=== PATIENT | female | born 1990 | race Caucasian/White ===

== ENCOUNTER 2016-06-30 19:48 | Emergency (ER) | payer OTHER ==
[2016-06-30 20:03] VITALS: BP 125/66; PULSE 71; RESP 20; TEMP 97.8
--- NOTE | 2016-06-30 20:04 | ED ---
URI HPI - General Stated Complaint: congestion Time Seen by Provider: 06/30/16 19:58 Source: patient, RN notes reviewed Mode of arrival: ambulatory Limitations: no limitations - History of Present Illness Initial Comments: 25-year-old female presents emergency Department chief complaint cold-like symptoms last 4 days. Patient states that she's been taking Sudafed, over-the- counter pain relievers no relief. She states she has sinus pressure, runny nose cough. She states that her mother is concerned that she has multiple contacts that have been diagnosed with pneumonia. Patient had no known fever. She states she has felt hot and cold though she did not take her temperature. Patient denies any relief with qrth-[id number]-[id number] medications. Denies ear pain or shortness throat. Denies any nausea vomiting diarrhea constipation. Denies any chance . - Related Data Home Medications Medication Instructions Recorded Confirmed Etonogestrel/Ethinyl Estradiol 1 ring VAGINAL Q28D 03/05/16 06/30/16 [Nuvaring Vaginal Ring] Previous Rx's Medication Instructions Recorded Amoxicillin/Potassium Clav 1 tab PO Q12HR #20 tab 06/30/16 [Augmentin 875-125 Tablet] Allergies Allergy/AdvReac Type Severity Reaction Status Date / Time No Known Allergies Allergy Verified 03/05/16 17:12 Review of Systems ROS Statement: Those systems with pertinent positive or pertinent negative responses have been documented in the HPI. ROS Other: All systems not noted in ROS Statement are negative. Past Medical History Past Medical History: No Reported History Additional Past Medical History / Comment(s): miscarriage History of Any Multi-Drug Resistant Organisms: None Reported Additional Past Surgical History / Comment(s): d and c Past Psychological History: No Psychological Hx Reported Smoking Status: Current every day smoker Past Alcohol Use History: Occasional Past Drug Use History: None Reported General Exam General appearance: alert, in no apparent distress Head exam: Present: atraumatic, normocephalic, normal inspection Eye exam: Present: normal appearance, PERRL, EOMI. Absent: scleral icterus, conjunctival injection, periorbital swelling ENT exam: Present: normal exam, normal oropharynx, mucous membranes moist, TM's normal bilaterally, normal external ear exam Neck exam: Present: normal inspection, full ROM. Absent: tenderness, meningismus, lymphadenopathy Respiratory exam: Present: normal lung sounds bilaterally. Absent: respiratory distress, wheezes, rales, rhonchi, stridor Cardiovascular Exam: Present: regular rate, normal rhythm, normal heart sounds. Absent: systolic murmur, diastolic murmur, rubs, gallop, clicks Skin exam: Present: warm, dry, intact, normal color. Absent: rash Course Vital Signs 06/30/16 20:01 Temperature 97.8 F Pulse Rate 71 Respiratory 20 Rate Blood Pressure 125/66 O2 Sat by Pulse 98 Oximetry Disposition Clinical Impression: Sinusitis Disposition: HOME SELF-CARE Condition: Stable Instructions: Sinusitis (ED) Additional Instructions: Please return to the Emergency Department if symptoms worsen or any other concerns. Prescriptions: Amoxicillin/Potassium Clav [Augmentin 875-125 Tablet] 1 tab PO Q12HR #20 tab Time of Disposition: 20:14
--- NOTE | 2016-06-30 20:19 | XR ---
EXAMINATION TYPE: XR chest 2V DATE OF EXAM: 06/30/2016 8:06 PM COMPARISON: NONE HISTORY: Cough and congestion TECHNIQUE: Frontal and lateral views of the chest are obtained. FINDINGS: Heart and mediastinum are normal. Lungs are clear. Diaphragm is normal. Bony thorax and so ft tissues appear normal. IMPRESSION: Normal chest
== END 2016-06-30 20:20 | disposition home or self-care (01) ==
LOC: EC 19:48
DX: J32.9 Chronic sinusitis, unspecified (principal); F17.200 Nicotine dependence, unspecified, uncomplicated; Z79.3 Long term (current) use of hormonal contraceptives
CPT/HCPCS: 71020; 99283

== ENCOUNTER 2018-10-09 12:49 | Emergency (ER) | payer OTHER ==
[2018-10-09 13:25] VITALS: RESP 18
[2018-10-09] MEDS ORDERED: SODIUM CHLORIDE 0.9% 1,000 ML IV STA (14:20)
--- NOTE | 2018-10-09 14:23 | ED ---
Abdominal Pain HPI - General Chief Complaint: Abdominal Pain Stated Complaint: Abd.pain Time Seen by Provider: 10/09/18 13:59 Source: patient Mode of arrival: ambulatory Limitations: no limitations - History of Present Illness Initial Comments: 27-year-old female patient presents to the emergency department today for evaluation of right lower quadrant abdominal pain. Patient states she's had this pain since Friday. She describes as a sharp pain that has been constant since its onset. She denies any nausea, vomiting, constipation, or diarrhea. Denies any fevers or chills with this. She denies any hematuria, dysuria, urinary frequency, urinary urgency. Patient states that she did have routine labs drawn on Friday did provide a urine sample, review the results and everything was normal. She states is her only surgical history includes a D&C for miscarriage. She denies any current chance of . Denies any abnormal vaginal bleeding or discharge. Patient denies any recent rash, shortness breath, chest pain, back pain, numbness, tingling, dizziness, weakness, headache, visual changes, or any other complaints. - Related Data Home Medications Medication Instructions Recorded Confirmed Etonogestrel/Ethinyl Estradiol 1 ring VAGINAL Q28D 03/05/16 10/09/18 [Nuvaring Vaginal Ring] DULoxetine HCL [Cymbalta] 30 mg PO DAILY 04/23/17 10/09/18 Allergies Allergy/AdvReac Type Severity Reaction Status Date / Time No Known Allergies Allergy Verified 10/09/18 13:57 Review of Systems ROS Statement: Those systems with pertinent positive or pertinent negative responses have been documented in the HPI. ROS Other: All systems not noted in ROS Statement are negative. Past Medical History Past Medical History: No Reported History Additional Past Medical History / Comment(s): miscarriage History of Any Multi-Drug Resistant Organisms: None Reported Additional Past Surgical History / Comment(s): d and c Past Psychological History: No Psychological Hx Reported Smoking Status: Current every day smoker Past Alcohol Use History: Occasional Past Drug Use History: None Reported General Exam Limitations: no limitations General appearance: alert, in no apparent distress, other (Physical well- developed, well-nourished adult female patient in no acute distress. Vital signs upon presentation are temperature 98.6F, pulse 68, respirations 18, blood pressure 111/75, pulse ox 99% on room air.) Eye exam: Present: normal appearance, PERRL, EOMI. Absent: scleral icterus, conjunctival injection, periorbital swelling ENT exam: Present: normal exam, normal oropharynx, mucous membranes moist Respiratory exam: Present: normal lung sounds bilaterally. Absent: respiratory distress, wheezes, rales, rhonchi, stridor Cardiovascular Exam: Present: regular rate, normal rhythm, normal heart sounds. Absent: systolic murmur, diastolic murmur, rubs, gallop, clicks GI/Abdominal exam: Present: soft, tenderness (Right upper quadrant tenderness), normal bowel sounds. Absent: distended, guarding, rebound, rigid Neurological exam: Present: alert, oriented X3, CN II-XII intact Psychiatric exam: Present: normal affect, normal mood Skin exam: Present: warm, dry, intact, normal color. Absent: rash Course Vital Signs 10/09/18 10/09/18 13:21 15:53 Temperature 98.6 F 98.9 F Pulse Rate 68 70 Respiratory 18 18 Rate Blood Pressure 111/75 122/84 O2 Sat by Pulse 99 98 Oximetry Medical Decision Making - Medical Decision Making 27-year-old female patient presents to the emergency department today for evalu ation of right-sided abdominal pain. Physical examination did reveal right upper quadrant abdominal tenderness. Labs reviewed and are unremarkable. White blood cell count normal, liver enzymes normal. Urinalysis showed no evidence for infection. KUB x-ray was obtained and showed overall nonobstructive bowel gas pattern. Patient does not to some constipation. Patient had no tenderness over the right lower quadrant or McBurney's point. Patient denies vaginal bleeding or discharge. Did discuss findings and results with the patient. We did discuss possibility of constipation as a cause for her symptoms, she'll be given magnesium citrate. She is instructed to monitor for worsening symptoms including worsening pain and fever development. She is instructed to follow-up with her primary care physician for recheck in 1-2 days. Return parameters discussed in detail. She verbalizes understanding and agrees this plan. - Lab Data Result diagrams: 10/09/18 14:42 10/09/18 14:42 Lab Results 10/09/18 10/09/18 10/09/18 Range/Units 14:42 14:42 14:42 WBC 3.7 L (3.8-10.6) k/uL RBC 4.69 (3.80-5.40) m/uL Hgb 14.3 (11.4-16.0) gm/dL Hct 42.8 (34.0-46.0) % MCV 91.4 (80.0-100.0) fL MCH 30.5 (25.0-35.0) pg MCHC 33.4 (31.0-37.0) g/dL RDW 12.8 (11.5-15.5) % Plt Count 154 (150-450) k/uL Neutrophils % 37 % Lymphocytes % 51 % Monocytes % 7 % Eosinophils % 2 % Basophils % 1 % Neutrophils # 1.4 (1.3-7.7) k/uL Lymphocytes # 1.9 (1.0-4.8) k/uL Monocytes # 0.3 (0-1.0) k/uL Eosinophils # 0.1 (0-0.7) k/uL Basophils # 0.0 (0-0.2) k/uL Sodium 139 (137-145) mmol/L Potassium 4.3 (3.5-5.1) mmol/L Chloride 110 H (98-107) mmol/L Carbon Dioxide 22 (22-30) mmol/L Anion Gap 7 mmol/L BUN 9 (7-17) mg/dL Creatinine 0.54 (0.52-1.04) mg/dL Est GFR (CKD-EPI)AfAm >90 (>60 ml/min/1.73 sqM) Est GFR (CKD-EPI)NonAf >90 (>60 ml/min/1.73 sqM) Glucose 75 (74-99) mg/dL Calcium 9.3 (8.4-10.2) mg/dL Total Bilirubin 1.0 (0.2-1.3) mg/dL AST 29 (14-36) U/L ALT 33 (9-52) U/L Alkaline Phosphatase 40 (38-126) U/L Total Protein 6.6 (6.3-8.2) g/dL Albumin 4.3 (3.5-5.0) g/dL Amylase 74 (30-110) U/L Lipase 55 (23-300) U/L Urine Color Light Yellow Urine Appearance Clear (Clear) Urine pH 7.5 (5.0-8.0) Ur Specific [place] 1.006 (1.001-1.035) Urine Protein Negative (Negative) Urine Glucose (UA) Negative (Negative) Urine Ketones Negative (Negative) Urine Blood Negative (Negative) Urine Nitrite Negative (Negative) Urine Bilirubin Negative (Negative) Urine Urobilinogen <2.0 (<2.0) mg/dL Ur Leukocyte Esterase Negative (Negative) Urine HCG, Qual (Not Detectd) 10/09/18 Range/Units 14:42 WBC (3.8-10.6) k/uL RBC (3.80-5.40) m/uL Hgb (11.4-16.0) gm/dL Hct (34.0-46.0) % MCV (80.0-100.0) fL MCH (25.0-35.0) pg MCHC (31.0-37.0) g/dL RDW (11.5-15.5) % Plt Count (150-450) k/uL Neutrophils % % Lymphocytes % % Monocytes % % Eosinophils % % Basophils % % Neutrophils # (1.3-7.7) k/uL Lymphocytes # (1.0-4.8) k/uL Monocytes # (0-1.0) k/uL Eosinophils # (0-0.7) k/uL Basophils # (0-0.2) k/uL Sodium (137-145) mmol/L Potassium (3.5-5.1) mmol/L Chloride (98-107) mmol/L Carbon Dioxide (22-30) mmol/L Anion Gap mmol/L BUN (7-17) mg/dL Creatinine (0.52-1.04) mg/dL Est GFR (CKD-EPI)AfAm (>60 ml/min/1.73 sqM) Est GFR (CKD-EPI)NonAf (>60 ml/min/1.73 sqM) Glucose (74-99) mg/dL Calcium (8.4-10.2) mg/dL Total Bilirubin (0.2-1.3) mg/dL AST (14-36) U/L ALT (9-52) U/L Alkaline Phosphatase (38-126) U/L Total Protein (6.3-8.2) g/dL Albumin (3.5-5.0) g/dL Amylase (30-110) U/L Lipase (23-300) U/L Urine Color Urine Appearance (Clear) Urine pH (5.0-8.0) Ur Specific [place] (1.001-1.035) Urine Protein (Negative) Urine Glucose (UA) (Negative) Urine Ketones (Negative) Urine Blood (Negative) Urine Nitrite (Negative) Urine Bilirubin (Negative) Urine Urobilinogen (<2.0) mg/dL Ur Leukocyte Esterase (Negative) Urine HCG, Qual Not Detected (Not Detectd) - Radiology Data Radiology results: report reviewed, image reviewed KUB x-ray of the abdomen is obtained. Report reviewed in its entirety. Impression by Dr. Lundberg shows overall nonobstructive bowel gas pattern. Disposition Clinical Impression: Abdominal pain Disposition: HOME SELF-CARE Condition: Good Instructions (If sedation given, give patient instructions): Abdominal Pain (ED) Additional Instructions: Drink 1/2 bottle of magnesium citrate, if no bowel movement in 12 hours drink th e other half. Follow up with your primary care physician for recheck in 1-2 days. Return to the emergency department for any new, worsening, or concerning symptoms. Is patient prescribed a controlled substance at d/c from ED?: No Referrals: Jennyfer Rosenberg MD [Primary Care Provider] - 1-2 days Time of Disposition: 15:43
[2018-10-09 15:08] LABS: Basophils % (A) 1 %; Eosinophils # (A) 0.1 k/uL (0-0.7); Eosinophils % (A) 2 %; HCT 42.8 % (34.0-46.0); HGB 14.3 gm/dL (11.4-16.0); Lymphocytes # (A) 1.9 k/uL (1.0-4.8); Lymphocytes % (A) 51 %; MCH 30.5 pg (25.0-35.0); MCHC 33.4 g/dL (31.0-37.0); MCV 91.4 fL (80.0-100.0); Mean Platelet Volume 8.2; Monocytes # (A) 0.3 k/uL (0-1.0); Monocytes % (A) 7 %; Neutrophils # (A) 1.4 k/uL (1.3-7.7); Neutrophils % (A) 37 %; Platelet Count 154 k/uL (150-450); RBC 4.69 m/uL (3.80-5.40); RDW 12.8 % (11.5-15.5); WBC 3.7 k/uL (3.8-10.6)
[2018-10-09 15:12] LABS: Appearance,Urine Clear (Clear); Bilirubin,Urine Negative (Negative); Blood,Urine Negative (Negative); Color,Urine Light Yellow; Glucose,Urine (UA) Negative (Negative); Ketones,Urine Negative (Negative); Leukocyte Esterase,Urine Negative (Negative); Nitrite,Urine Negative (Negative); PH, Urine 7.5 (5.0-8.0); Protein,Urine Negative (Negative); Specific Gravity,Urine 1.006 (1.001-1.035); Urobilinogen,Urine <2.0 mg/dL (<2.0)
--- NOTE | 2018-10-09 15:24 | XR ---
EXAMINATION TYPE: XR KUB DATE OF EXAM: 10/09/2018 COMPARISON: NONE HISTORY: Pain TECHNIQUE: Single supine KUB image of the abdomen is obtained FINDINGS: Small bowel demonstrates no evidence for dilatation or air fluid levels. Gas and fecal material is seen in non-distended colon. No convincing evidence for pneumoperitoneum. No unusual calcifications. The lung bases are clear. The osseous structures are intact. IMPRESSION: 1. Overall nonobstructive bowel gas pattern.
[2018-10-09 15:26] LABS: ALT 33 U/L (9-52); AST 29 U/L (14-36); Albumin 4.3 g/dL (3.5-5.0); Alkaline Phosphatase 40 U/L (38-126); Amylase 74 U/L (30-110); Anion Gap 7 mmol/L; Blood Urea Nitrogen 9 mg/dL (7-17); Calcium 9.3 mg/dL (8.4-10.2); Carbon Dioxide 22 mmol/L (22-30); Chloride 110 mmol/L (98-107); Glucose 75 mg/dL (74-99); Lipase 55 U/L (23-300); Potassium 4.3 mmol/L (3.5-5.1); Sodium 139 mmol/L (137-145); Total Protein 6.6 g/dL (6.3-8.2)
[2018-10-09] MEDS ORDERED: MAGNESIUM CITRATE 296 ML BOTTLE PO ONE (15:44)
[2018-10-09 15:55] VITALS: BP 122/84; PULSE 70; TEMP 98.9
== END 2018-10-09 15:53 | disposition home or self-care (01) ==
LOC: EC 12:49
DX: R10.31 Right lower quadrant pain (principal); F17.200 Nicotine dependence, unspecified, uncomplicated; Z79.3 Long term (current) use of hormonal contraceptives; Z79.899 Other long term (current) drug therapy
CPT/HCPCS: 36415; 74018; 80053; 81003; 81025; 82150; 83690; 85025; 96360; 99284

== ENCOUNTER → 2018-10-16 | Outpatient (CLI) | payer OTHER ==
--- NOTE | 2018-10-17 10:13 | US ---
EXAMINATION TYPE: US pelvic complete DATE OF EXAM: 10/16/2018 COMPARISON: US CLINICAL HISTORY: R10.2 Pelvic Pain. right pelvic pain; vaginal bleeding with dark blood discharge; N uva ring [id number]/11/19, then vaginal bleeding 3 days afterwards; TECHNIQUE: Transvaginal (TV) and Transabdominal (TA) . Transabdominal sonographic images of the pel vis were acquired. Transvaginal sonographic images were medically necessary to better assess the fol lowing anatomy: endometrium. Date of LMP: 09/08/2018 EXAM MEASUREMENTS: Uterus: 8.3 x 4.9 x 2.9 cm Endometrial Stripe: 0.4 cm Right Ovary: 3.0 x 2.9 x 1.8 cm Left Ovary: 2.2 x 2.0x 1.4 cm 1. Uterus: Anteverted; Nuva ring noted on TA US at external cervical OS 2. Endometrium: wnl 3. Right Ovary: wnl with multiple small follicles 4. Left Ovary: wnl with multiple small follicles Spectral, color and waveform doppler imaging shows good arterial and venous flow within the ovaries ; there is no evidence for ovarian torsion. 5. Bilateral Adnexa: wnl 6. Posterior cul-de-sac: wnl IMPRESSION: 1. Small ovarian follicles. Otherwise unremarkable study.
== END | disposition home or self-care (01) ==
LOC: RADUSMAIN 17:41
PROVIDERS: ATTEND Obstetrics & Gynecology
DX: R10.2 Pelvic and perineal pain (principal)
CPT/HCPCS: 76830; 76856

== ENCOUNTER → 2022-03-08 | Outpatient (CLI) | payer BC, OTHER ==
[2022-03-08 15:08] LABS: Basophils # (A) 0.01 X 10*3/uL (0.00-0.10); Basophils % (A) 0.2 %; Eosinophils # (A) 0.06 X 10*3/uL (0.04-0.35); Eosinophils % (A) 1.3 %; HCT 38.6 % (37.2-46.3); Immature Grans, Automated 0.4 %; Lymphocytes # (A) 1.98 X 10*3/uL (0.90-5.00); Lymphocytes % (A) 43.9 %; MCHC 33.7 g/dL (32.0-37.0); MCV 91.9 fL (80.0-97.0); Mean Platelet Volume 11.5 fL (9.5-12.2); Monocytes % (A) 11.1 %; NRBC Per 100 WBC 0 /100 WBCS (0.0-0.0); Neutrophils # (A) 1.94 X 10*3/uL (1.80-7.70); Neutrophils % (A) 43.1 %; Platelet Count 156 X 10*3/uL (140-440); RDW 12.8 % (11.5-14.5); WBC 4.51 X 10*3/uL (4.50-10.00)
== END | disposition home or self-care (01) ==
LOC: LABPAT 08:36
PROVIDERS: ATTEND Obstetrics & Gynecology
DX: Z01.812 Encounter for preprocedural laboratory examination (principal)
CPT/HCPCS: 85025

== ENCOUNTER 2022-03-11 06:28 | Day surgery (SDC) | payer BC, OTHER ==
[2022-03-07 15:22] VITALS: BMI 27.7
--- NOTE | 2022-03-11 04:23 | P.HPOB ---
History of Present Illness H&P Date: 03/11/22 Chief Complaint: missed ab 31 year old presents for suction D&C. She had an US that showed either a molar or a collapsing gestational sac. Review of Systems All systems: negative Constitutional: Denies chills, Denies fever Eyes: denies blurred vision, denies pain Ears, nose, mouth and throat: Denies headache, Denies sore throat Cardiovascular: Denies chest pain, Denies shortness of breath Respiratory: Denies cough Gastrointestinal: Denies abdominal pain, Denies diarrhea, Denies nausea, Denies vomiting Genitourinary: Denies dysuria, Denies hematuria Musculoskeletal: Denies myalgias Integumentary: Denies pruritus, Denies rash Neurological: Denies numbness, Denies weakness Psychiatric: Denies anxiety, Denies depression Endocrine: Denies fatigue, Denies weight change Past Medical History Past Medical History: No Reported History Additional Past Medical History / Comment(s): This is her third early miscarriage History of Any Multi-Drug Resistant Organisms: None Reported Additional Past Surgical History / Comment(s): d and c Past Anesthesia/Blood Transfusion Reactions: No Reported Reaction Smoking Status: Current every day smoker - Past Family History Mother Family Medical History: No Reported History Medications and Allergies Home Medications Medication Instructions Recorded Confirmed Type Doxylamine Succinate [Unisom] 12.5 mg PO HS 03/07/22 03/07/22 History L.acidoph,Paracasei, B.lactis 1 each PO DAILY 03/07/22 03/07/22 History [Probiotic] Multivitamins, Thera [Multivitamin 1 tab PO DAILY 03/07/22 03/07/22 History (formulary)] Allergies Allergy/AdvReac Type Severity Reaction Status Date / Time No Known Allergies Allergy Verified 03/07/22 15:09 Exam Osteopathic Statement: *. No significant issues noted on an osteopathic structural exam other than those noted in the History and Physical/Consult. Heart: RRR Lungs: CTAB Abdomen: soft, nontender Extremeties: neg tracy's Assessment and Plan (1) Missed Status: Acute Code(s): O02.1 - MISSED SNOMED Code(s): 14933397 Plan: 1. suction D&C
[~2022-03-11 06:28] MED LIST: DEXAMETHASONE SOD PHOSPHATE 4 MG/ML 1 ML VIAL IV ONE; HYDROmorphone 0.5 MG/0.5 ML SYRINGE IVP PRN; LACTATED RINGERS 1,000 ML IV SCH; ONDANSETRON 4 MG/2 ML VIAL IVP ONE; Pre Op ABX Message 1 EACH MISC MISCELLANE ONE
[2022-03-11] MEDS ORDERED: LIDOCAINE 2% INJ 20 MG/ML (2 ML VIAL) ONE (07:25)
[2022-03-11] MEDS ORDERED: fentaNYL (PF) 50 MCG/ML 2 ML AMP ONE (07:25)
[2022-03-11] MEDS ORDERED: PROPOFOL 10 MG/ML 20 ML VIAL IV ONE (07:25)
[2022-03-11] MEDS ORDERED: MIDAZOLAM 2 MG/2 ML VIAL ONE (07:25)
[2022-03-11 08:07] VITALS: TEMP 97.2
--- NOTE | 2022-03-11 08:14 | P.OP ---
Date of Procedure: 03/11/22 Preoperative Diagnosis: 1. missed Postoperative Diagnosis: 1. same Procedure(s) Performed: suction D&C Anesthesia: MAC (LMA) Surgeon: Hellen Sotelo Estimated Blood Loss (ml): 400 IV fluids (ml): 500 Urine output (ml): 15 Pathology: other (Products of conception) Condition: stable Disposition: PACU Description of Procedure: patient is taken the operating room where general anesthesia was obtained without difficulty. She is prepped and draped in normal sterile fashion dorsal lithotomy position, legs placed in candycane stirrups. Bladder was drained of all urine. Weighted speculum placed in vagina the anterior lip of the cervix was grasped with single-tooth tenaculum. The cervix was found to be fingertip dilated. I used the Hegar dilators to dilate the cervix to #12 Hegar dilator.the #12 curved suction curet was introduced into uterus and passed several times to obtain all tissue and blood. Sharp curet was gently used to ensure all tissue had been removed. Suction curet was passed a few more times. Hemostasis was achieved. Patient procedure well. Sponge and instrument counts correct 2. She was taken to recovery in stable condition.
[2022-03-11 08:44] VITALS: RESP 16
[2022-03-11 08:58] VITALS: BP 106/70; PULSE 68
== END 2022-03-11 09:22 | disposition home or self-care (01) ==
LOC: OR 06:28
PROVIDERS: ATTEND Obstetrics & Gynecology
DX: O02.0 Blighted ovum and nonhydatidiform mole (principal); F17.200 Nicotine dependence, unspecified, uncomplicated; Z3A.00 Weeks of gestation of pregnancy not specified
CPT/HCPCS: 59820; 86901; 86900; 88305; 86850; J2250; J1100; J2405; J3010; J2704; J2001

== ENCOUNTER → 2022-04-06 | Outpatient (CLI) | payer BC, OTHER ==
[2022-04-06 17:03] LABS: T4, Free (Free Thyroxine) 1.32 ng/dL (0.800-1.800)
[2022-04-08 14:30] LABS: Prothrombin 20210A Mutation Negative
[2022-04-08 15:06] LABS: APTT 47 Sec(s) (<43); APTT 1:1 Mix 40 Sec(s) (<43); Dilute Russell Viper Venom 38 Sec(s) (<44)
[2022-04-08 15:24] LABS: Cardiolipin Ab IgG Interp NEGATIVE (NEGATIVE); Cardiolipin Ab IgM Interp NEGATIVE (NEGATIVE); Cardiolipin IgA Antibody <2.0 U/mL; Cardiolipin IgM Antibody <1.5 U/mL
== END | disposition home or self-care (01) ==
LOC: LABWHC1 11:11
PROVIDERS: ATTEND Obstetrics & Gynecology
DX: N96 Recurrent pregnancy loss (principal)
CPT/HCPCS: 36415; 81240; 81241; 83036; 84439; 84443; 85613; 85730; 85732; 86038; 86147